=== PATIENT | male | born 1945 | race Caucasian/White ===

== ENCOUNTER 2022-08-01 13:10 | Outpatient (OUT) | payer MEDICARE, SELFPAY | END 2022-08-01 13:11 | disposition home or self-care (01) | LOC: WC 13:11 | PROVIDERS: PCP Surgery; Visit Provider Surgery | DX: L98.9 Disorder of the skin and subcutaneous tissue, unspecified (principal); L98.8 Other specified disorders of the skin and subcutaneous tissue; T81.30XA Disruption of wound, unspecified, initial encounter; R60.0 Localized edema; L60.3 Nail dystrophy; L03.119 Cellulitis of unspecified part of limb | CPT/HCPCS: G0463 ==

== ENCOUNTER 2022-08-20 13:08 | Outpatient (OUT) | payer MEDICARE, SELFPAY ==
--- NOTE | 2022-08-20 13:09 | VEIN_ITS ---
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 TECHNIQUE: The risks and benefits of the procedure had been previously discussed, and were rediscussed at length. Informed written consent was obtained. Elena Guerra and Paul Ledbetter assisted. Time out procedure was performed. The left lower extremity was prepared and draped in the usual sterile fashion to allow knee flexion in the sterile field. Duplex ultrasound probe was draped in a sterile cover, sterile transmission gel was used. Venous mapping was performed with the areas of dilation and large tributaries marked. The total length was 62 cm from the entry 6 cm above the medial malleolus to 3 cm below the saphenofemoral junction. The diameter of the greater saphenous vein ranged from 5-10 mm. A 30 gauge needle and 1% buffered lidocaine was used to anesthetize the entry site. A 4 mm incision was made with a scalpel and the saphenous vein was entered percutaneously under direct ultrasound guidance with a micropuncture set, a single stick was successful in gaining access. A micro-guide wire was inserted and the needle removed. A micro-set including a dilator was inserted over the microwire and the needle and dilator were removed. A 0.018 guide wire was inserted through the micro-set and threaded through the saphenous vein to the saphenofemoral junction. The dilator was removed and an introducer sheath was inserted over the wire until the end of the sheath entered the saphenofemoral junction. The dilator and wire were removed and the 600 micron fiber was introduced and placed and positioned so that it extended beyond the sheath and was 3 cm peripheral to the saphenofemoral femoral junction. Final position of the fiber was determined by ultrasound guidance and duplex imaging. Tumescent anesthetic was delivered by ultrasound guidance. 500 cc of fluid was delivered along the entire course of the saphenous vein. The solution consisted of 1000 cc of normal saline with 40 mL of 1% lidocaine and 20 mL of sodium bicarbonate. A final positioning check was made. The energy source was turned on by means of the foot pedal and the fiber and sheath were withdrawn. The total number of Joules delivered was 3107. The laser was active for 388 seconds under continuous pulse, average laser use of 8 J. Laser start time 13:57 08/20/22 . Laser stop time 14:03 08/16/26 . A duplex ultrasound revealed compressibility and flow at the saphenofemoral junction immediately after the procedure. Hemostasis at the access site was achieved. The skin incision of the saphenous vein was closed with a 4 x 4. A compression stocking was applied. Postop instructions were given. A follow up appointment was recommended and scheduled. The patient tolerated the procedure well and was discharged in good condition . IMPRESSION: Technically successful endovenous laser ablation left great saphenous vein Electronically authenticated by: ARASELI LÓPEZ Date: 08/20/2022 14:42
[2022-08-20] MEDS: 0.9 % SODIUM CHLORIDE 500 ML, LIDOCAINE HCL 20 ML, SODIUM BICARBONATE 10 MEQ INJ (13:41)
[2022-08-20] MEDS: LIDOCAINE HCL 10 ML, SODIUM BICARBONATE 1 MEQ INJ (13:42)
== END 2022-08-20 13:09 | disposition home or self-care (01) ==
LOC: VC 13:08
PROVIDERS: PCP Radiology Diagnostic Radiology; Visit Provider Radiology Diagnostic Radiology
DX: I83.813 Varicose veins of bilateral lower extremities with pain (principal)
CPT/HCPCS: 36478

== ENCOUNTER 2022-09-02 13:32 | Outpatient (OUT) | payer MEDICARE, SELFPAY | END 2022-09-02 13:33 | disposition home or self-care (01) | LOC: WC 13:32 | PROVIDERS: PCP Physician Assistant; Visit Provider Physician Assistant | DX: L98.8 Other specified disorders of the skin and subcutaneous tissue (principal); R60.0 Localized edema; L03.114 Cellulitis of left upper limb; L97.822 Non-pressure chronic ulcer of other part of left lower leg with fat layer exposed; L97.812 Non-pressure chronic ulcer of other part of right lower leg with fat layer exposed | CPT/HCPCS: 29580; 97597 ==

== ENCOUNTER 2022-09-03 15:09 | Outpatient (OUT) | payer MEDICARE, SELFPAY ==
--- NOTE | 2022-09-03 15:11 | VEIN_ITS ---
Patient: ZACHARIAH CHANCE Exam Date: 09/03/2022 : 1945 Gender:M Ordering : DR ARASELI LÓPEZ M.D. Admission #: [id number] Family : Order #: [id number] CLICK HERE TO VIEW EXAM RADIOLOGY REPORT PROCEDURE: VC EXT VENOUS LT LIMITED COMPARISON: None. INDICATIONS: I80.02 Phlebitis of superficial veins of lt lower extremity TECHNIQUE: Lower extremity haas scale and Duplex Doppler evaluation of the deep venous system from the inguinal ligament through the calf veins. FINDINGS: REGION: Left lower extremity. THROMBI: Negative for DVT. Heat induced thrombus visualized 3.6 cm from the SFJ. The heat induced thrombus extends from groin to mid calf. COMPRESSIBILITY: Non-compressible segments. FLOW: Areas of no flow. OTHER: CONCLUSION: 1. Successful post ablation occlusion of left great saphenous vein. Dictated by: Edmundo Hatfield M.D. on 09/04/2022 at 10:44 Approved by: Edmundo Hatfield M.D. on 09/04/2022 at 10:44
--- NOTE | 2022-09-03 15:11 | VEIN_ITS ---
Patient: ZACHARIAH CHANCE Exam Date: 09/03/2022 : 1945 Gender:M Ordering : DR ARASELI LÓPEZ M.D. Admission #: [id number] Family : Order #: [id number] CLICK HERE TO VIEW EXAM RADIOLOGY REPORT PROCEDURE: VC FACILITY EST [facility] - OFFICE VISIT FOLLOW UP COMPARISON: None. PROGRESS NOTES: The patient reports improvement in leg symptoms. There has been interval reduction in varicosities. The patient has followed our recommendations to attempt to walk 20-30 minutes once or twice per day since the procedure. Physical exam demonstrates decrease in varicosities and improved skin appearance, coloration, and decreased weeping of extensive distal lower extremity wounds. Persistent varicosities are identified along the legs bilaterally. Review of the ultrasound performed the same day demonstrates occlusive thrombus extending throughout the treated vein, see separate report, consistent with a successful ablation. No thrombus extending into or beyond the saphenofemoral junction. The patient expressed a desire to proceed with treatment of remaining incompetent superficial veins. The patient was informed that treatment was a process and would require several procedures/sessions. VEIN/ Facility EST LMTD IMPRESSION: 1. Successful ablation of the left saphenous vein 2. Persistent incompetent superficial veins and bilateral lower extremity symptoms PLAN: Endovenous laser ablation of right anterior accessory saphenous vein. Nurse notes, history and physical were reviewed and confirmed, see attached forms. The nurse was present throughout the physical exam and consultation Dictated by: Edmundo Hatfield M.D. on 09/04/2022 at 10:44 Approved by: Edmundo Hatfield M.D. on 09/04/2022 at 10:48
== END 2022-09-03 15:10 | disposition home or self-care (01) ==
LOC: VC 15:09
PROVIDERS: PCP Radiology Diagnostic Radiology; Visit Provider Radiology Diagnostic Radiology
DX: I80.02 Phlebitis and thrombophlebitis of superficial vessels of left lower extremity (principal)
CPT/HCPCS: 93971; G0463